=== PATIENT | female | born 1995 | race Caucasian/White ===

== ENCOUNTER 2021-02-08 02:58 | Inpatient (IN) | payer OTHER ==
[~2021-02-08] VITALS: Ht 167.6 cm; Wt 95.9 kg
[2021-02-08] VITALS (46 sets, daily range): BP systolic 94–154; BP diastolic 52–93; PULSE 59–111; TEMP 98.2–99
[~2021-02-08 02:58] MED LIST: LORTAB ELIX0.5 MG/ML PO; NO HOME MEDICATIONS; PREDNISONE20 MG PO
--- NOTE | 2021-02-08 03:15 | NUR ---
0315: PT AMBULATORY TO UNIT COMPLAINING OF "CONTRACTIONS THAT ARE WAKING ME UP AND EVERY 5 MINUTES". DENIES LEAKING OF FLUID. REPORTS POSITIVE MOVEMENT. PLACED ON EFM/TOCO. CATEGORY 1 STRIP AT THIS TIME. 0320: SVE 3-4/80/-2 0420: SVE 3-4/80/-2. PT STATES "I'M NOT LEAVING IN THIS MUCH PAIN. I AM STAYING HERE." PT EDUCATED ON EARLY LABOR AND LABOR CHECK POC. ENCOURAGED TO WALK IN THE HALLWAYS OR SIT ON BIRTHING BALL. WILL RECHECK CERVIX IN 1 HOUR AND REASSESS PLAN OF CARE.
[2021-02-08] MEDS ORDERED: PRENATAL (03:16)
--- NOTE | 2021-02-08 07:32 | NUR ---
FHT: [id number]: PT. OFF MONITOR WALKING THE HALLS [id number]:MONITOR NOT RECORDING STRIP. HEART TONES CHARTED OFF OF OB TRACE VIEW
[2021-02-08 09:36] LABS: BASO % 0.2 % (0.0-2.0); EOS % 0.2 % (0-4.0); GRAN # 10.9 (1.4-6.5); GRAN % 79.3 % (42.2-75.2); HEMATOCRIT 38.9 % (37.0-47.0); HEMOGLOBIN 12.9 g/dl (12.5-16.0); LYMPH # 1.9 (1.2-3.4); LYMPH % 13.9 % (20.0-51.0); MEAN CELL VOLUME 89 fl (80.0-100.0); MEAN CORPUSCULAR HEMOGLOBIN 30 pg (27.0-31.0); MEAN CORPUSCULAR HGB CONC 33 g/dl (33.0-37.0); MEAN PLATELET VOLUME 12.9 fl (7.4-10.4); MONO # 0.8 (0.1-0.6); MONO % 5.8 % (1.7-9.3); PLATELET COUNT 118 K/mm3 (130-400); RED BLOOD COUNT 4.38 M/mm3 (4.10-5.30); REDCELL DISTRIBUTION WIDTH-CV 13.5 % (11.5-14.5)
--- NOTE | 2021-02-08 10:21 | NUR ---
EPIDURAL: 0937: MISAEL SYLVESTER CRNA CALLED FOR EPIDURAL PLACEMENT 1000: ESHA DOUGLAS AT BS FOR EPIDURAL PLACEMENT 1001: TIME OUT PERFORMED PT. SITTING UP AT SIDE OF BED 1007: SINGLE SHOT DOSE GIVEN PT. STATES NO ADVERSE REACTIONS. PT. TOLERATED PROCEDURE WELL. NO COMPLAINTS FROM PT.
--- NOTE | 2021-02-08 10:27 | NUR ---
0847: DR. ALVAREZ AT BS TO ASSESS PT. PER HIS SVE, SHE IS . HE IS ADMITTING HER FOR ACTIVE LABOR AND WILL PLAN TO AROM ONCE SHE HAS AN IV. PLAN IS TO GET IV AND CONSENTS DONE, THEN DR. ALVAREZ WILL COME BACK AND BREAK WATER. 0920: DR. ALVAREZ AT BS FOR AROM. SVE 100/0, AROM PERFORMED. CLEAR FLUID NOTED. PT. PUT IN THRONES AND WILL CONTINUE TO MONITOR PT.
--- NOTE | 2021-02-08 10:47 | NUR ---
FHT 0830: BASELINE 155BPM, MODERATE VARIABILITY, + ACCELS, EARLY AND LATE DECELERATION NOTED.
--- NOTE | 2021-02-08 13:29 | NUR ---
DR ALVAREZ AT BS 1305. SVE UNCHANGED . [facility] WAS EXPLAINED TO PT. QUESTIONS INVITED BUT PT STATES SHE HAS NONE. [facility] WAS PLACED AND + COUGH TEST.
[2021-02-08] MEDS ORDERED: MOTRIN 800800 MG/TAB PO (18:04)
[2021-02-08] MEDS ORDERED: PREDNISONE20 MG PO (18:07)
--- NOTE | 2021-02-08 18:34 | NUR ---
DELIVERY NOTE: 1626: PT. COMPLETE +2. DR. ALVAREZ CALLED FOR UPDATE. AWAITING DAD TO START PUSHING. 1650: STARTED PUSHING. PUSHING WITH DESCENT. 1720: DR. ALVAREZ AT . SET UP FOR DELIVERY. NURSERY CALLED 1725: MOE OUT 1729: BABY GIRL BORN VIA . PLACED ON MATERNAL ABDOMEN AND CARE TAKEN OVER BY NURSERY NURSE. 1732: PLACENTA SPONTANEOUSLY DELIVERED. VAGINAL LACERATION PER DR. ALVAREZ. DR. ALVAREZ AT PERINEUM FOR REPAIR. PT. HAS NO COMPLAINTS. EBL PER DR. LEE 200ML. AFTER REPAIR, PT. ENTERED RECOVERY PERIOD. PT. HAS NO QUESTIONS OR COMPLAINTS AT THIS TIME. PT. AND INFANT STABLE
[2021-02-09 00:30] VITALS: BP 130/78; PULSE 78; TEMP 98.2
[2021-02-09 04:30] VITALS: BP 119/66; PULSE 74; TEMP 97.8
[2021-02-09 08:30] VITALS: BP 112/73; PULSE 81; TEMP 98
[2021-02-09 10:31] LABS: HEMATOCRIT 41.4 % (37.0-47.0); HEMOGLOBIN 13.5 g/dl (12.5-16.0); MEAN CELL VOLUME 92 fl (80.0-100.0); MEAN CORPUSCULAR HEMOGLOBIN 30 pg (27.0-31.0); MEAN CORPUSCULAR HGB CONC 33 g/dl (33.0-37.0); PLATELET COUNT 112 K/mm3 (130-400); RED BLOOD COUNT 4.49 M/mm3 (4.10-5.30); REDCELL DISTRIBUTION WIDTH-CV 13.9 % (11.5-14.5)
[2021-02-09 10:46] LABS: BAND 9 % (0-10); EOSINOPHIL 1 % (0-4); LYMPHOCYTE 7 % (20.0-51.0); NEUTROPHILS 78 % (42.0-75.2); PLATELET ESTIMATE DECREASED (NORMAL)
[2021-02-09 15:44] VITALS: BP 129/71; PULSE 86; TEMP 98.1
[2021-02-09 21:00] VITALS: BP 120/74; PULSE 65; TEMP 98.1
[2021-02-10 06:51] VITALS: BP 117/72; PULSE 64; TEMP 98.3
== END 2021-02-10 17:00 | disposition home or self-care (01) | DRG 806 ==
LOC: LDRO 02:58 → LDR 03:15 → LDRO 08:55 → LDR 08:56 → OB 08:56 → LDR 08:57 → OB 20:30
PROVIDERS: Obstetrics & Gynecology; ADMIT Obstetrics & Gynecology
PROC: 10E0XZZ Delivery of Products of Conception, External Approach (ICD-10-PCS; principal; 2021-02-08)
PROC: 0UQGXZZ Repair Vagina, External Approach (ICD-10-PCS; 2021-02-08)
DX: O99.02 Anemia complicating childbirth (principal); O99.12 Other diseases of the blood and blood-forming organs and certain disorders involving the immune mechanism complicating childbirth; Z37.0 Single live birth; O71.4 Obstetric high vaginal laceration alone; D64.9 Anemia, unspecified; Z3A.38 38 weeks gestation of pregnancy
CPT/HCPCS: J1200; J1720; J2590; J7120; J7512

== ENCOUNTER → 2021-02-28 | Outpatient (CLI) | payer OTHER ==
[~2021-02-28] MED LIST changes: +MOTRIN 800800 MG/TAB PO; +PRENATAL
--- NOTE | 2021-02-28 15:01 | NUR ---
Pt, Mikaela Ayers, presents for outpatient consult with 20 day old baby girl, Beni Amin because of concerns about her feeding habits and intake. Beni was born on [birth year] and weighed 8#3.2oz (3720 gms). Today Beni weighs 9#2.0oz (4140 gms). Pt places Beni to the breast but she struggles to keep the breast in her mouth. LC suggests aligning Beni so the nipple points toward her top lip vs the bottom lip. Beni is able to stay latched better and has frequent swallows. She does have to re-latch a few times after letting go to keep up with milk flow. Pt states Beni has qs voids and yellow stools, eats 8+ times daily. She is able to collect milk after the morning feedings for return to work. Frequently Beni only nurses from one breast, reminded that this is okay for the amount of weight Beni has gained. After the right, Beni has a gain of 1.2oz (32 gms), and from the left a gain of 1.3oz (38 gms) for a total of 2.5oz (70 gms). POC: Continue to breastfeed ad yoana, offer both breasts each feeding. Questions invited and answered. F/U: As scheduled with Dr. Pantoja. Questions invited and answered.
== END ==
LOC: LAC 14:32
DX: Z39.1 Encounter for care and examination of lactating mother (principal); Z71.89 Other specified counseling

== ENCOUNTER 2023-04-09 14:39 | Inpatient (IN) | payer BC ==
[~2023-04-09] VITALS: Ht 167.6 cm; Wt 93.2 kg
[2023-04-18] VITALS (38 sets, daily range): BP systolic 99–140; BP diastolic 53–85; PULSE 67–105; TEMP 98.3–99.1
--- NOTE | 2023-04-18 06:20 | NUR ---
PT OREINTED TO ROOM AND CHANGED INTO GOWN. PLACED ON MONITORS, FHT CATAGORY 1 TRACING. VS WNL, TEMP ELEVATED TO 99.1. PER PT THERE HAS BEEN NO LOF, VB, OR PAINFUL CX. PT IS FEELING REGULAR MOVEMENT. FOB AT BEDSIDE, VERY SUPPORTIVE.
[2023-04-18] MEDS ORDERED: LEXAPRO20 MG PO (07:12)
[2023-04-18] MEDS ORDERED: EUTHYROX50 MCG PO (07:12)
[2023-04-18] MEDS ORDERED: PEPCID 20MG TAB20 MG PO (07:13)
[2023-04-18 07:39] LABS: BASO % 0.2 % (0.0-2.0); EOS # 0.1 K/mm3 (0.0-0.7); EOS % 0.9 % (0.0-4.0); GRAN # 5.6 K/mm3 (1.4-6.5); GRAN % 64.7 % (42.2-75.2); HEMOGLOBIN 11.4 g/dl (12.5-16.0); LYMPH # 2.3 K/mm3 (1.2-3.4); LYMPH % 27.1 % (20.0-51.0); MEAN CELL VOLUME 89 fl (80.0-100.0); MEAN CORPUSCULAR HEMOGLOBIN 29 pg (27-31); MEAN CORPUSCULAR HGB CONC 33 g/dl (33.0-37.0); MEAN PLATELET VOLUME 12.9 fl (7.4-10.4); MONO # 0.6 K/mm3 (0.1-0.6); MONO % 6.6 % (1.7-9.3); PLATELET COUNT 115 K/mm3 (130-400); RED BLOOD COUNT 3.93 M/mm3 (4.10-5.30); REDCELL DISTRIBUTION WIDTH-CV 13.6 % (11.5-14.5)
[2023-04-18 07:43] LABS: HEMATOCRIT 34.8 % (37.0-47.0)
--- NOTE | 2023-04-18 07:45 | NUR ---
DIFFICULTLY TRACING MATERNAL CX DUE TO POSSITION. PT WAS FEELING CX EVERY 5-8 MINUTES, PER THIS RN.
--- NOTE | 2023-04-18 08:45 | NUR ---
DR ROBERTS ON UNIT AND AT BEDSIDE. SVE /-2. ATTEMPTED AROM AT 0847. VERY THICK BAG OF WATER PER DR ROBERTS. AFTER ATTEMPT SOME MUCUS LIKE DISCHARGE NOTED, BUT NO LARGE GUSH OR TRICKLE. PT WENT TO BATHROOM AND NO FLUID NOTED ON BED PADS OR TOWEL.
--- NOTE | 2023-04-18 09:58 | NUR ---
MISAEL CALLED FOR PT REQUESTED EPIDURAL. SHE STATED THAT SHE WOULD BE HERE SHORTLY.
--- NOTE | 2023-04-18 10:24 | NUR ---
MISAEL AT BEDSIDE. PT REPOSITIONED TO SITTING. O2 AND BP MONITORS ON. FLUID BOLUS. 1030 SINGLE SHOT. PT TOLERATED WELL. PT REPOSTIONED TO WEDGE RIGHT. VS WNL.
--- NOTE | 2023-04-18 11:00 | NUR ---
SHORTLY AFTER PT WAS REPOSITIONED TO SUPINE, WEDGE RIGHT FHT DROPPED INTO A VARIABLE. PT WAS QUICKLY REPOSTIONED AND VARIABLE DID NOT REPEATED.
--- NOTE | 2023-04-18 14:34 | NUR ---
1326- SVE 1. CALLED DR ROBERTS AND AN AURICULAR THERAPIST ANSWERED BECAUSE DR ROBERTS WAS IN SURGERY. CALLED DR VINES TO UPDATE. DR VINES TOLD ME TO PRACTICE PUSH WITH MOM, BUT I REMINDED HER THAT PT WAS A MULTIP. SHE SAID OKAY, SHE IS AT THE OB DESK AND TO LET HER KNOW WHEN I NEEDED HER. 1335- PAYAL DC'D. 1337- DR VINES AT BEDSIDE. TOLD PT THAT SHE HAD SPOKEN WITH DR ROBERTS WHO WAS ALMOST DONE WITH SURGERY AND SHE SHOULD BE HERE SHORTLY, BABY LOOKS GOOD SO WE'LL JUST LABOR DOWN. 1428- DR ROBERTS AT BEDSIDE. 1430- PT BEGAN PUSHING. 1434- SPONTANEOUS OF A VIABLE MALE BY DR ROBERTS. 1436- SPONTANEOUS DELIVERY OF THE PLACENTA. BABY PLACED SKIN TO SKIN, FOB CUT THE CORD. NURSERY NURSE LEONEL TOOK OVER CARE OF THE . DR ROBERTS BEGAN THE REPAIR OF A RIGHT LABIAL TEAR AND A RIGHT VAGINAL VAULT TEAR WITH MODERATE BLEEDING. TEARS REPAIRED BY DR ROBERTS. BLEEDING WNL. PT CLEANED UP AND REPOSITIONED IN BED.
[2023-04-18 17:25] LABS: BASO % 0.2 % (0.0-2.0); GRAN # 10.1 K/mm3 (1.4-6.5); HEMOGLOBIN 10.7 g/dl (12.5-16.0); LYMPH # 1.2 K/mm3 (1.2-3.4); LYMPH % 9.9 % (20.0-51.0); MEAN CELL VOLUME 90 fl (80.0-100.0); MEAN CORPUSCULAR HEMOGLOBIN 29 pg (27-31); MEAN CORPUSCULAR HGB CONC 32 g/dl (33.0-37.0); MEAN PLATELET VOLUME 13.3 fl (7.4-10.4); MONO # 0.8 K/mm3 (0.1-0.6); MONO % 6.5 % (1.7-9.3); PLATELET COUNT 110 K/mm3 (130-400); RED BLOOD COUNT 3.68 M/mm3 (4.10-5.30); REDCELL DISTRIBUTION WIDTH-CV 13.8 % (11.5-14.5)
[2023-04-18 17:30] LABS: HEMATOCRIT 33.1 % (37.0-47.0)
[2023-04-18] MEDS ORDERED: MOTRIN 800800 MG/TAB PO (18:47)
[2023-04-19 00:30] VITALS: BP 105/67; PULSE 80; TEMP 98.1
[2023-04-19 07:13] VITALS: BP 120/79; PULSE 87; TEMP 98
--- NOTE | 2023-04-19 09:24 | NUR ---
Initial visit; Parents thanked [facility] for looking in on them and offering congratulations and God's blessings for the of their son. [facility] thanked family for choosing [place].
== END 2023-04-19 16:00 | disposition home or self-care (01) | DRG 807 ==
LOC: LDR 04-18 06:07 → OB 04-18 06:07 → LDR 04-18 14:38 → OB 04-18 18:31
PROVIDERS: Nurse Anesthetist, Certified Registered; ADMIT Obstetrics & Gynecology
PROC: 10E0XZZ Delivery of Products of Conception, External Approach (ICD-10-PCS; principal; 2023-04-18)
PROC: 0KQM0ZZ Repair Perineum Muscle, Open Approach (ICD-10-PCS; 2023-04-18)
PROC: 10907ZC Drainage of Amniotic Fluid, Therapeutic from Products of Conception, Via Natural or Artificial Opening (ICD-10-PCS; 2023-04-18)
PROC: 0UQMXZZ Repair Vulva, External Approach (ICD-10-PCS; 2023-04-18)
PROC: 3E033VJ Introduction of Other Hormone into Peripheral Vein, Percutaneous Approach (ICD-10-PCS; 2023-04-18)
DX: O99.12 Other diseases of the blood and blood-forming organs and certain disorders involving the immune mechanism complicating childbirth (principal); Z37.0 Single live birth; D69.6 Thrombocytopenia, unspecified; Z3A.38 38 weeks gestation of pregnancy; O99.214 Obesity complicating childbirth; O99.284 Endocrine, nutritional and metabolic diseases complicating childbirth; E03.9 Hypothyroidism, unspecified; Z79.890 Hormone replacement therapy; O76 Abnormality in fetal heart rate and rhythm complicating labor and delivery; O70.1 Second degree perineal laceration during delivery; O69.81X0 Labor and delivery complicated by cord around neck, without compression, not applicable or unspecified; O99.344 Other mental disorders complicating childbirth; F32.A Depression, unspecified
CPT/HCPCS: J1720; J2590; J2795; J7120; J7512

== ENCOUNTER 2023-12-08 14:56 | Emergency (ER) | payer BC ==
[~2023-12-08] VITALS: Ht 165.1 cm; Wt 86.4 kg
[~2023-12-08 14:56] MED LIST changes: +EUTHYROX50 MCG PO; +LEXAPRO20 MG PO; +PEPCID 20MG TAB20 MG PO
[2023-12-08] MEDS ORDERED: NS 1,000 ML IV ONE (15:30)
[2023-12-08] MEDS ORDERED: LORazepam 2 MG/ML 1 ML VIAL IV ONE (15:30)
[2023-12-08 15:46] LABS: ALANINE AMINOTRANSFERASE 34 U/L (0-55); ALBUMIN 4.3 g/dL (3.5-5.0); ALKALINE PHOSPHATASE 65 U/L (40-150); ANION GAP 13 mmol/L (7-16); AST,SGOT 23 U/L (5-34); BILIRUBIN,TOTAL 0.3 mg/dL (0.2-1.2); BLOOD UREA NITROGEN 13 mg/dL (7-19); CHLORIDE 107 mEq/L (98-107); CREATININE, serum 0.87 mg/dL (0.57-1.11); GLUCOSE 96 mg/dL (70-99); POTASSIUM 3.9 mEq/L (3.5-4.5); SODIUM 142 mEq/L (136-145); TOTAL PROTEIN 7.7 g/dl (6.2-8.1)
[2023-12-08 15:52] LABS: BASO % 0.4 % (0.0-2.0); EOS # 0.2 K/mm3 (0.0-0.7); GRAN # 5.5 K/mm3 (1.4-6.5); GRAN % 70.2 % (42.2-75.2); HEMATOCRIT 40.4 % (37.0-47.0); HEMOGLOBIN 13.5 g/dl (12.5-16.0); LYMPH # 1.6 K/mm3 (1.2-3.4); LYMPH % 20.1 % (20.0-51.0); MEAN CELL VOLUME 88 fl (80.0-100.0); MEAN CORPUSCULAR HEMOGLOBIN 29 pg (27-31); MEAN CORPUSCULAR HGB CONC 33 g/dl (33.0-37.0); MEAN PLATELET VOLUME 12.5 fl (7.4-10.4); MONO # 0.6 K/mm3 (0.1-0.6); PLATELET COUNT 160 K/mm3 (130-400); RED BLOOD COUNT 4.59 M/mm3 (4.10-5.30); REDCELL DISTRIBUTION WIDTH-CV 12.5 % (11.5-14.5)
[2023-12-08 16:05] LABS: TSH w REFLEX 1.167 uIU/mL (0.350-4.940)
[2023-12-08] MEDS ORDERED: Ketorolac 15 MG/ML VIAL IV ONE (16:15)
[2023-12-08 16:17] LABS: TROPONIN-I < 0.010 ng/mL (0.00-0.033)
[2023-12-08 17:39] VITALS: BP 120/65; PULSE 77; TEMP 98.4
== END 2023-12-08 17:39 | disposition home or self-care (01) ==
LOC: COL.ER 14:56
PROVIDERS: Physician Assistant
DX: R00.2 Palpitations (principal); R07.89 Other chest pain
CPT/HCPCS: J1885; J2060; J7030